=== PATIENT | female | born 1960 | race Caucasian/White ===

== ENCOUNTER 2017-09-02 18:58 | Emergency (ER) | payer OTHER ==
[~2017-09-02] VITALS: Ht 170.2 cm; Wt 81.6 kg
--- NOTE | 2017-09-02 19:13 | NUR ---
CALLED TO BE TRIAGE, NO RESPONSE
[2017-09-02 19:23] VITALS: BP 139/86
--- NOTE | 2017-09-02 19:23 | NUR ---
PATIENT BACK FOR TRIAGE
--- NOTE | 2017-09-02 19:25 | NUR ---
TO LOBBY AMBULATORY IN STABLE CONDITION, A/W FOR BED, CHANTALE NOTED
--- NOTE | 2017-09-02 19:30 | NUR ---
56/F CAME IN W C/O RT EAR PAIN AND FEVER X 5 DAYS. DENIES TRUAMA.INJURY TO EAR, REPORTS SHE IS HAVING HARD TIME HEARING OUT FROM RT EAR, DENIES DRAINAGE. DENIES OTHER PMH/RX
--- NOTE | 2017-09-02 21:38 | NUR ---
Patient discharged with v/s stable. Written and verbal after care instructions given and explained. Patient alert, oriented and verbalized understanding of instructions. Ambulatory with steady gait. All questions addressed prior to discharge. ID band removed. Patient advised to follow up with PMD. Rx of AMOXICILLIN AND OMEPRAZOLE given. Patient educated on indication of medication including possible reaction and side effects. Opportunity to ask questions provided and answered.
[2017-09-02 22:01] VITALS: BP 127/81
== END 2017-09-02 21:38 | disposition home or self-care (01) ==
LOC: MED 18:58
DX: H66.91 Otitis media, unspecified, right ear (principal); Z88.8 Allergy status to other drugs, medicaments and biological substances
CPT/HCPCS: 99283

== ENCOUNTER 2020-11-21 17:32 | Emergency (ER) | payer OTHER ==
[~2020-11-21] VITALS: Ht 170.2 cm; Wt 81.6 kg
[2020-11-21 17:51] VITALS: BP 137/81
[2020-11-21] MEDS ORDERED: IBUPROFEN 600 MG TAB PO ONE (18:15)
[2020-11-21] MEDS ORDERED: NAPR-1560 PO (18:37)
[2020-11-21] MEDS ORDERED: CLIN-178 PO (18:37)
[2020-11-21] MEDS ORDERED: METR500T1 PO (18:42)
[2020-11-21] MEDS ORDERED: CEPH500T PO (18:42)
[2020-11-21 18:55] VITALS: BP 137/81
== END 2020-11-21 18:55 | disposition home or self-care (01) ==
LOC: MED 17:32
DX: N76.0 Acute vaginitis (principal); Z79.899 Other long term (current) drug therapy
CPT/HCPCS: 81002; 99283

== ENCOUNTER 2023-12-15 17:13 | Inpatient (IN) | payer OTHER, MEDICAID ==
[~2023-12-15] VITALS: Ht 170.2 cm; Wt 81.6 kg
[~2023-12-15 17:13] MED LIST: CEPH500T PO; METR500T1 PO; NAPR-1560 PO
[2023-12-15 17:18] VITALS: BP 129/91; PULSE 90; RESP 18; TEMP 97.9; O2SAT 97
[2023-12-15 18:32] LABS: BASOPHILS % (AUTO) 0.3 % (0.0-2.0); EOSINOPHILS # (AUTO) 0.2 K/uL (0-0.4); EOSINOPHILS % (AUTO) 0.9 % (0.0-4.0); HEMATOCRIT 44.3 % (36-48); HEMOGLOBIN 15.2 g/dL (12.0-16.0); LYMPHOCYTES # (AUTO) 1.5 K/uL (2.5-16.5); MEAN CORPUSCULAR HEMOGLOBIN 29 pg (27-31); MEAN CORPUSCULAR HGB CONC 34 g/dL (33-37); MEAN CORPUSCULAR VOLUME 82.9 fL (80-94); MONOCYTES # (AUTO) 1.1 K/uL (0.8-1.0); MONOCYTES % (AUTO) 6.5 % (1.7-9.3); NEUTROPHILS # (AUTO) 13.6 K/uL (1.8-7.7); NEUTROPHILS % (AUTO) 83.3 % (42.2-75.2); PLATELET COUNT (AUTO) 443 K/uL (140-450); RED BLOOD CELL COUNT(AUTO) 5.34 MIL/uL (4.20-5.40); RED CELL DISTRIBUTION WIDTH 13.8 % (11.6-13.7); WHITE BLOOD COUNT (AUTO) 16.4 K/uL (4.8-10.8)
[2023-12-15 18:40] LABS: ANION GAP 16.8 (8-16); CARBON DIOXIDE 22.9 mmol/L (21-32); CREATININE 0.8 mg/dL (0.6-1.3); POTASSIUM 3.7 mmol/L (3.5-5.1)
[2023-12-15 19:15] LABS: BILIRUBIN,DIRECT 0.2 mg/dL (0.0-0.3); TOTAL BILIRUBIN 0.5 mg/dL (0.0-1.0); TOTAL PROTEIN, SERUM 7.3 g/dL (6.4-8.2)
[2023-12-15 19:23] LABS: FLU A ANTIGEN negative (NEGATIVE); FLU B ANTIGEN NEGATIVE (NEGATIVE)
[2023-12-15 22:01] LABS: BILIRUBIN,URINE 1+ (NEGATIVE); BLOOD, URINE 1+ (NEGATIVE); COLOR,URINE YELLOW (YELLOW); LEUKOCYTE ESTERASE ,URINE NEGATIVE (NEGATIVE); NITRITE, URINE NEGATIVE (NEGATIVE); PH,URINE 6.5 (5.0-9.0); PROTEIN,URINE TRACE (NEGATIVE); UGLUCOSE NEGATIVE (NEGATIVE)
[2023-12-15 22:06] LABS: APPEARANCE,URINE SLIGHTLY CLOUDY (CLEAR)
[2023-12-15 22:07] LABS: BACTERIA,URINE 1+ /HPF (None Seen); ICTOTEST POSITIVE (NEGATIVE); MUCUS,URINE None Seen /LPF (None Seen); RBC,URINE 0-5 /HPF (0-5); SQUAMOUS EPITHELIAL CELL,UR 0-3 (FEW) /LPF (0-3 (FEW)); WBC,URINE 0 /HPF (0-5)
[2023-12-15 22:12] LABS: BARBITURATE, URINE NEGATIVE ng/ml (NEG <=200)
[2023-12-15 22:13] LABS: AMPHETAMINE, URINE POSITIVE ng/ml (NEG <=1000); BENZODIAZEPINE, URINE NEGATIVE ng/mL (NEG <=200); CANNABINOID, URINE NEGATIVE ng/mL (NEG <=50); COCAINE, URINE NEGATIVE ng/mL (NEG <=300); OPIATE, URINE NEGATIVE ng/mL (NEG <=2000); PHENCYCLIDINE SCREEN,URINE NEGATIVE ng/mL (NEG <=25)
[2023-12-16] MEDS ORDERED: cefTRIAXone 1,000 MG VIAL ONE (06:55)
[2023-12-16] MEDS: PANTOPRAZOLE 40 MG INJ VIAL IVP ONE (07:06)
[2023-12-16] MEDS: NACL 0.9% 1,000 ML IV SCH (07:07)
[2023-12-16] MEDS: NACL 0.9% 1,000 ML IV ONE (07:40)
[2023-12-16] MEDS ORDERED: MAG SULF 2000 MG/WATER PREMIX 50 ML IV PRN (10:45)
[2023-12-16] MEDS ORDERED: KCL 20 MEQ IN 100 mL PREMIX 200 ML IV PRN (10:45)
[2023-12-16] MEDS ORDERED: ACETAMINOPHEN 325 MG TAB PO PRN ×2 (10:45→10:55)
[2023-12-16] MEDS ORDERED: POLYETHYLENE GLYCOL 17 GM/PKT PO PRN (10:45)
[2023-12-16] MEDS ORDERED: HYDROcodone/APAP 5/325 MG 1 TAB TAB PO PRN (10:45)
[2023-12-16 12:26] LABS: BASOPHILS # (AUTO) 0.1 K/uL (0.00-0.22); BASOPHILS % (AUTO) 0.5 % (0.0-2.0); EOSINOPHILS # (AUTO) 0.2 K/uL (0-0.4); EOSINOPHILS % (AUTO) 1.3 % (0.0-4.0); HEMATOCRIT 43.6 % (36-48); HEMOGLOBIN 14.6 g/dL (12.0-16.0); LYMPHOCYTES # (AUTO) 2.6 K/uL (2.5-16.5); LYMPHOCYTES % (AUTO) 15.4 % (20.5-51.1); MEAN CORPUSCULAR HEMOGLOBIN 28 pg (27-31); MEAN CORPUSCULAR HGB CONC 33 g/dL (33-37); MEAN CORPUSCULAR VOLUME 83.8 fL (80-94); MONOCYTES # (AUTO) 1.3 K/uL (0.8-1.0); MONOCYTES % (AUTO) 7.9 % (1.7-9.3); NEUTROPHILS # (AUTO) 12.5 K/uL (1.8-7.7); NEUTROPHILS % (AUTO) 74.9 % (42.2-75.2); PLATELET COUNT (AUTO) 450 K/uL (140-450); RED CELL DISTRIBUTION WIDTH 13.3 % (11.6-13.7); WHITE BLOOD COUNT (AUTO) 16.7 K/uL (4.8-10.8)
[2023-12-16 12:40] LABS: ALBUMIN 2.8 g/dL (3.4-5.0); ANION GAP 13.3 (8-16); CALCIUM 8.4 mg/dL (8.5-10.1); CARBON DIOXIDE 25.4 mmol/L (21-32); CREATININE 0.8 mg/dL (0.6-1.3); POTASSIUM 3.7 mmol/L (3.5-5.1); TOTAL BILIRUBIN 0.4 mg/dL (0.0-1.0); TOTAL PROTEIN, SERUM 6.9 g/dL (6.4-8.2)
[2023-12-16 16:00] VITALS: BP 141/87; PULSE 84; RESP 18; TEMP 99; O2SAT 97
[2023-12-16] MEDS: PANTOPRAZOLE 80 MG in NACL 0.9% 100 ML IV SCH (17:58)
[2023-12-16] MEDS: SENNA 8.6 MG TAB PO SCH (17:59)
[2023-12-16] MEDS: POLYETHYLENE GLYCOL 17 GM/PKT PO SCH (17:59)
[2023-12-16] MEDS: LACTULOSE 20 GM/30 ML UDC PO SCH (17:59)
[2023-12-16] MEDS: ERYTHROMYCIN 200 MG in NACL 0.9% 100 ML IV SCH (18:00)
[2023-12-16 20:00] VITALS: BP 132/78; PULSE 72; PULSE 77; PULSE 90; RESP 20; TEMP 98; O2SAT 98; O2SAT 99
[2023-12-16 20:23] LABS: HEMATOCRIT 43.2 % (36-48); HEMOGLOBIN 14.5 g/dL (12.0-16.0)
[2023-12-16] MEDS: SUPREP BOWEL PREP KIT 354 ML SOLN.RECON PO SCH (20:56)
[2023-12-16] MEDS: AMITRIPTYLINE 10 MG TAB PO SCH (20:56)
[2023-12-16] MEDS: ONDANSETRON 4 MG/2 ML VIAL IVP PRN (22:11)
[2023-12-16] MEDS: PANTOPRAZOLE 40 MG INJ VIAL ONE (22:18)
[2023-12-17] VITALS (7 sets, daily range): BP systolic 130–155; BP diastolic 72–82; PULSE 77–97; RESP 18–20; TEMP 97.2–98.7; O2SAT 91–100
[2023-12-17] MEDS: MORPHINE SULFATE 2 MG/ML SYR IVP PRN (04:46)
[2023-12-17] MEDS: PANTOPRAZOLE 40 MG INJ VIAL ONE (06:36)
[2023-12-17 07:51] LABS: BASOPHILS % (AUTO) 0.3 % (0.0-2.0); EOSINOPHILS % (AUTO) 0.1 % (0.0-4.0); HEMATOCRIT 41.7 % (36-48); HEMOGLOBIN 13.9 g/dL (12.0-16.0); LYMPHOCYTES # (AUTO) 1.4 K/uL (2.5-16.5); LYMPHOCYTES % (AUTO) 9.2 % (20.5-51.1); MEAN CORPUSCULAR HEMOGLOBIN 28 pg (27-31); MEAN CORPUSCULAR HGB CONC 33 g/dL (33-37); MEAN CORPUSCULAR VOLUME 83.5 fL (80-94); MONOCYTES % (AUTO) 6.7 % (1.7-9.3); NEUTROPHILS # (AUTO) 12.5 K/uL (1.8-7.7); NEUTROPHILS % (AUTO) 83.7 % (42.2-75.2); PLATELET COUNT (AUTO) 431 K/uL (140-450); RED BLOOD CELL COUNT(AUTO) 4.99 MIL/uL (4.20-5.40); RED CELL DISTRIBUTION WIDTH 13.2 % (11.6-13.7); WHITE BLOOD COUNT (AUTO) 14.9 K/uL (4.8-10.8)
[2023-12-17 11:23] LABS: ALBUMIN 2.8 g/dL (3.4-5.0); ANION GAP 15.2 (8-16); CALCIUM 8.5 mg/dL (8.5-10.1); CARBON DIOXIDE 23.7 mmol/L (21-32); CREATININE 0.6 mg/dL (0.6-1.3); PHOSPHORUS 3.5 mg/dL (2.5-4.9); POTASSIUM 3.9 mmol/L (3.5-5.1); TOTAL BILIRUBIN 0.3 mg/dL (0.0-1.0); TOTAL PROTEIN, SERUM 6.7 g/dL (6.4-8.2)
[2023-12-17] MEDS: NICOTINE TRANSD SYS 14 MG/24 HR PATCH TD SCH (11:50)
[2023-12-17] MEDS ORDERED: SODIUM PHOSPHATE 118 ML ENEM RC SCH (13:10)
[2023-12-17] MEDS: MELATONIN 3 MG TAB PO PRN (22:04)
[2023-12-18 04:00] VITALS: BP 129/81; PULSE 85; RESP 18; TEMP 97.8; O2SAT 98
[2023-12-18 06:51] LABS: BASOPHILS # (AUTO) 0.1 K/uL (0.00-0.22); BASOPHILS % (AUTO) 0.6 % (0.0-2.0); EOSINOPHILS # (AUTO) 0.4 K/uL (0-0.4); HEMATOCRIT 39.2 % (36-48); HEMOGLOBIN 13.3 g/dL (12.0-16.0); LYMPHOCYTES % (AUTO) 13.8 % (20.5-51.1); MEAN CORPUSCULAR HEMOGLOBIN 28 pg (27-31); MEAN CORPUSCULAR HGB CONC 34 g/dL (33-37); MEAN CORPUSCULAR VOLUME 83.3 fL (80-94); MONOCYTES # (AUTO) 1.1 K/uL (0.8-1.0); MONOCYTES % (AUTO) 7.5 % (1.7-9.3); NEUTROPHILS % (AUTO) 75.1 % (42.2-75.2); PLATELET COUNT (AUTO) 419 K/uL (140-450); RED BLOOD CELL COUNT(AUTO) 4.71 MIL/uL (4.20-5.40); RED CELL DISTRIBUTION WIDTH 13.5 % (11.6-13.7); WHITE BLOOD COUNT (AUTO) 14.6 K/uL (4.8-10.8)
[2023-12-18 06:59] LABS: ALBUMIN 2.5 g/dL (3.4-5.0); ANION GAP 11.5 (8-16); CALCIUM 8.4 mg/dL (8.5-10.1); CARBON DIOXIDE 27.4 mmol/L (21-32); CREATININE 0.6 mg/dL (0.6-1.3); MAGNESIUM 2.1 mg/dL (1.8-2.4); PHOSPHORUS 2.8 mg/dL (2.5-4.9); POTASSIUM 3.9 mmol/L (3.5-5.1); TOTAL BILIRUBIN 0.5 mg/dL (0.0-1.0); TOTAL PROTEIN, SERUM 6.4 g/dL (6.4-8.2)
[2023-12-18 08:06] VITALS: PULSE 82; RESP 19; O2SAT 99
[2023-12-18] MEDS: SODIUM PHOSPHATE 118 ML ENEM RC PRN (11:30)
[2023-12-18 20:00] VITALS: BP 122/80; PULSE 70; PULSE 75; RESP 18; TEMP 97.8; O2SAT 98; O2SAT 99
[2023-12-19 04:00] VITALS: BP 118/66; PULSE 72; RESP 18; TEMP 98.2; O2SAT 98
[2023-12-19 07:40] LABS: BASOPHILS # (AUTO) 0.1 K/uL (0.00-0.22); BASOPHILS % (AUTO) 0.5 % (0.0-2.0); EOSINOPHILS # (AUTO) 0.7 K/uL (0-0.4); EOSINOPHILS % (AUTO) 5.5 % (0.0-4.0); HEMATOCRIT 36.7 % (36-48); HEMOGLOBIN 12.4 g/dL (12.0-16.0); LYMPHOCYTES # (AUTO) 2.2 K/uL (2.5-16.5); LYMPHOCYTES % (AUTO) 18.7 % (20.5-51.1); MEAN CORPUSCULAR HEMOGLOBIN 28 pg (27-31); MEAN CORPUSCULAR HGB CONC 34 g/dL (33-37); MEAN CORPUSCULAR VOLUME 83.5 fL (80-94); MONOCYTES % (AUTO) 8.8 % (1.7-9.3); NEUTROPHILS # (AUTO) 7.8 K/uL (1.8-7.7); NEUTROPHILS % (AUTO) 66.5 % (42.2-75.2); PLATELET COUNT (AUTO) 367 K/uL (140-450); RED CELL DISTRIBUTION WIDTH 13.2 % (11.6-13.7); WHITE BLOOD COUNT (AUTO) 11.7 K/uL (4.8-10.8)
[2023-12-19 07:55] LABS: INR 1.03 (0.8-1.2); PARTIAL THROMBOPLASTIN TIME 29.7 secs (22-35.6); PROTHROMBIN TIME 10.8 secs (10.8-13.4)
[2023-12-19 08:00] VITALS: BP 117/72; PULSE 68; RESP 19; TEMP 97.2; O2SAT 98
[2023-12-19 08:02] VITALS: PULSE 82; RESP 20; O2SAT 99
[2023-12-19 08:03] LABS: ALBUMIN 2.2 g/dL (3.4-5.0); ANION GAP 13.6 (8-16); CALCIUM 8.1 mg/dL (8.5-10.1); CREATININE 0.6 mg/dL (0.6-1.3); MAGNESIUM 1.8 mg/dL (1.8-2.4); PHOSPHORUS 3.1 mg/dL (2.5-4.9); POTASSIUM 3.6 mmol/L (3.5-5.1); TOTAL BILIRUBIN 0.4 mg/dL (0.0-1.0); TOTAL PROTEIN, SERUM 5.9 g/dL (6.4-8.2)
[2023-12-19] MEDS ORDERED: diphenhydrAMINE 50 MG/ML VIAL ONE (08:45)
[2023-12-19] MEDS ORDERED: fentaNYL citrate 0.05 MG/ML VIAL ONE (08:45)
[2023-12-19] MEDS ORDERED: MIDAZOLAM 5 MG/5 ML VIAL ONE (08:45)
[2023-12-19] MEDS: MIDAZOLAM 5 MG/5 ML VIAL IV ONE (08:52)
[2023-12-19] MEDS: fentaNYL citrate 0.05 MG/ML VIAL IVP ONE (08:53)
[2023-12-19] MEDS ORDERED: PANTOPRAZOLE 40 MG INJ VIAL IVP SCH (09:00)
[2023-12-19] MEDS: GLUCAGON 1 MG VIAL IVP ONE (09:20)
[2023-12-19] MEDS ORDERED: GLUCAGON 1 MG VIAL ONE (09:34)
[2023-12-19] MEDS: PANTOPRAZOLE 40 MG INJ VIAL IVP SCH (11:07)
[2023-12-19] MEDS: POLYETHYLENE GLYCOL 17 GM/PKT PO SCH (13:00)
[2023-12-19] MEDS: metroNIDAZOLE 500 MG/NS PREMIX 100 ML IV SCH (13:39)
[2023-12-19 16:00] VITALS: BP 117/73; PULSE 70; RESP 20; TEMP 97.8; O2SAT 98
[2023-12-19] MEDS: SENNA 8.6 MG TAB PO SCH (17:00)
[2023-12-19] MEDS ORDERED: AMITRIPTYLINE 25 MG TAB PO SCH (21:00)
== END 2023-12-19 20:55 | disposition left against medical advice (07) | DRG 380 ==
LOC: MED 17:13 → MTU 12-16 07:18
PROVIDERS: ADMIT Family Medicine; ATTEND Family Medicine
PROC: 0DB38ZX Excision of Lower Esophagus, Via Natural or Artificial Opening Endoscopic, Diagnostic (ICD-10-PCS; principal; 2023-12-19 10:40)
PROC: 0DJD8ZZ Inspection of Lower Intestinal Tract, Via Natural or Artificial Opening Endoscopic (ICD-10-PCS; 2023-12-19 10:40)
DX: K22.70 Barrett's esophagus without dysplasia (principal); K20.91 Esophagitis, unspecified with bleeding; E44.0 Moderate protein-calorie malnutrition; N32.1 Vesicointestinal fistula; Z20.822 Contact with and (suspected) exposure to COVID-19; D72.829 Elevated white blood cell count, unspecified; K57.30 Diverticulosis of large intestine without perforation or abscess without bleeding; F15.10 Other stimulant abuse, uncomplicated; N28.9 Disorder of kidney and ureter, unspecified; F17.210 Nicotine dependence, cigarettes, uncomplicated; K59.00 Constipation, unspecified; Z87.11 Personal history of peptic ulcer disease; Z88.8 Allergy status to other drugs, medicaments and biological substances; Z88.5 Allergy status to narcotic agent; K29.70 Gastritis, unspecified, without bleeding
CPT/HCPCS: 36415; 71045; 76770; 80048; 80053; 80076; 80305; 81001; 83690; 83735; 84100; 85018; 85025; 85610; 85730; 86886; 86900; 86901; 87040; 87081; 88305; 88313; 96365; 96375; 97116; 97163-GP; 99285; C9113; J0696; J1200; J1364; J1610; J2250; J2270; J2405; J3010; J3490; J7030; J7060; Q0092; Q9967